=== PATIENT | male | born 1995 | race Caucasian/White ===

== ENCOUNTER 2016-07-17 20:06 | Emergency (ER) | payer SELFPAY ==
[2016-07-17 20:14] VITALS: BMI 31.6
--- NOTE | 2016-07-17 20:22 | PDOC ---
History of Present Illness <Bi Anaya - Last Filed: 07/17/16 22:42> - General History Source: Patient Exam Limitations: No Limitations <Jacey Thomas - Last Filed: 07/17/16 22:46> - General Chief Complaint: Chest Pain Stated Complaint: CHEST PAIN Time Seen by Provider: 07/17/16 20:21 - History of Present Illness Initial Comments: 07/17/16 20:43 Patient is a 20 year old male with no significant past medical history who presents to the ED with chest tightness. Patient states that he has been experiencing 4 days of intermittent sharp chest tightness, nonradiating, nonpleuritic with 5/10 in severity that has worsened today. Patient states that the chest tightness is worse at night. He reports 1 episode of vomiting today, non bloody. He denies any chest pain. Allergies: NKA (Jacey Thomas) Past History - Immunization History Immunization Up to Date: Yes - Psycho/Social/Smoking Cessation Hx Anxiety: No Suicidal Ideation: No Smoking Status: No Smoking History: Current every day smoker Number of Cigarettes Smoked Daily: 9 Information on smoking cessation initiated: Yes Hx Alcohol Use: No Drug/Substance Use Hx: No Substance Use Type: None <Bi Anaya - Last Filed: 07/17/16 22:42> <Jacey Thomas - Last Filed: 07/17/16 22:46> - Past Medical History Allergies/Adverse Reactions: Allergies Allergy/AdvReac Type Severity Reaction Status Date / Time No Known Allergies Allergy Verified 07/17/16 20:12 Home Medications: Ambulatory Orders NK [No Known Home Medication] 07/17/16 Review of Systems <Bi Anaya - Last Filed: 07/17/16 22:42> - Review of Systems Able to Perform ROS?: Yes <Jacey Thomas - Last Filed: 07/17/16 22:46> - Review of Systems Comments:: 07/17/16 20:44 CONSTITUTIONAL: No fever, no chills, no fatigue EYES: No visual changes ENT: No ear pain, no sore throat CARDIOVASCULAR: (+)chest tightness. No chest pain, no palpitations RESPIRATORY: No cough, no SOB GI: No abdominal pain, no nausea, no vomiting, no constipation, no diarrhea GENITOURINARY: No dysuria, no frequency, no hematuria MUSCULOSKELETAL: No back pain, no joint pain, no myalgias SKIN: No rash NEURO: No headache (Jacey Thomas) *Physical Exam <Bi Anaya - Last Filed: 07/17/16 22:42> <Jacey Thomas - Last Filed: 07/17/16 22:46> - Vital Signs Last Vital Signs Temp Pulse Resp BP Pulse Ox 61 21 139/75 100 07/17/16 21:31 07/17/16 21:31 07/17/16 21:31 07/17/16 21:31 - Physical Exam Comments: 07/17/16 20:44 CONSTITUTIONAL: (+)Anxious appearing, (+)Tachypneic. HEAD: Normocephalic; atraumatic EYES: PERRL; EOM intact ENMT: External appears normal; normal oropharynx NECK: Supple; non-tender; no cervical lymphadenopathy CARD: (+)Reproducible left chest wall tenderness. Normal S1, S2; no murmurs, rubs, or gallops RESP: Normal chest excursion with respiration; breath sounds clear and equal bilaterally; no wheezes, rhonchi, or rales ABD: Soft, non-distended; non-tender; no palpable organomegaly, no palpable hernias EXT: Normal ROM in all four extremities; non-tender to palpation; distal pulses intact SKIN: Warm, dry, no rash NEURO: No focal neurological deficiencies. (Jacey Thomas) Heart Score/ECG Review <Bi Anaya - Last Filed: 07/17/16 22:42> <Jacey Thomas - Last Filed: 07/17/16 22:46> #1 07/17/16 20:45 NS with sinus arrhythmia Normal ECG Vent rate 82 bpm (Jacey Thomas) ED Treatment Course - LABORATORY CBC & Chemistry Diagram: 07/17/16 20:54 07/17/16 20:54 <Bi Anaya - Last Filed: 07/17/16 22:42> - LABORATORY CBC & Chemistry Diagram: 07/17/16 20:54 07/17/16 20:54 <Jacey Thomas - Last Filed: 07/17/16 22:46> - ADDITIONAL ORDERS Additional order review: Laboratory Results 07/17/16 07/17/16 07/17/16 20:54 20:54 20:54 INR 1.12 Sodium 142 Potassium 3.6 Chloride 109 H Carbon Dioxide 24 Anion Gap 9 BUN 17 Creatinine 1.0 Creat Clearance w eGFR > 60 Random Glucose 85 Calcium 9.1 Total Bilirubin 0.6 D AST 18 D ALT 39 Alkaline Phosphatase 71 Creatine Kinase 363 H Creatine Kinase Index 0.5 CK-MB (CK-2) 1.701 CK-MB (CK-2) Rel Index Cancelled Troponin I < 0.02 Total Protein 7.1 Albumin 4.1 07/17/16 20:54 RBC 5.29 MCV 86.9 MCHC 33.9 RDW 12.9 MPV 10.8 Neutrophils % 65.7 Lymphocytes % 27.6 D Monocytes % 5.4 Eosinophils % 0.6 Basophils % 0.7 - Medications Given in the ED: ED Medications Discontinued Medications Generic Name Dose Route Start Last Admin Trade Name Freq PRN Reason Stop Dose Admin Ketorolac Tromethamine 30 mg 07/17/16 20:36 07/17/16 20:53 Toradol Injection - IVPUSH 07/17/16 20:37 30 mg ONCE ONE Administration Medical Decision Making <Bi Anaya - Last Filed: 07/17/16 22:42> <Jacey Thomas - Last Filed: 07/17/16 22:46> - Medical Decision Making 07/17/16 22:42 Patient is a 20-year-old male who presented to the ER with atraumatic reproducible left anterior chest wall pain. On initial evaluation, patient was noted to be hyperventilating, anxious appearing. Physical exam revealed reproducible left anterior chest wall tenderness to palpation. After period of reassurance, patient's vital signs normalized without intervention. Chest x-ray reveals no evidence of cardiomegaly or pneumothorax. CBC/CMP within normal limit. Cardiac enzymes reveal minimally elevated CPK but a normal troponin. I do not suspect ACS or PE at this time. Musculoskeletal chest pain is likely. Patient has received Toradol and reports significant improvement levels of his pain. Will discharge with medical follow-up as needed. (Bi Anaya) *DC/Admit/Observation/Transfer <Bi Anaya - Last Filed: 07/17/16 22:42> <Jacey Thomas - Last Filed: 07/17/16 22:46> Diagnosis at time of Disposition: Atypical chest pain - Discharge Dispostion Disposition: HOME - Referrals Referrals: [facility] [Provider Group] - Patient Instructions Printed Discharge Instructions: DI for Atypical Chest Pain - Attestations Physician Attestion: 07/17/16 22:42 The documentation was prepared by the scribe under my direct supervision. I have reviewed the documentation which correctly represents the findings, medical decision-making and critical action taken by me. (Bi Anaya)
[2016-07-17] MEDS ORDERED: KETOROLAC TROMETHAMINE 30 MG/1 ML VIAL IVPUSH ONE (20:36)
[2016-07-17] MEDS ORDERED: KETOROLAC TROMETHAMINE 30 MG/1 ML VIAL ONE (20:47)
[2016-07-17 21:03] LABS: BASOPHIL 0.7 % (0-2.0); EOSINOPHIL 0.6 % (0-4.5); MCH 29.5 pg (25.7-33.7); MCHC 33.9 g/dl (32.0-35.9); MEAN CELL VOLUME 86.9 fl (80-96); MEAN PLT VOLUME 10.8 fl (7.5-11.1); NEUTROPHILS 65.7 % (42.8-82.8); PLATELET COUNT 154 K/MM3 (134-434); RDW 12.9 % (11.9-15.9); WHITE BLOOD COUNT 8.2 K/mm3 (4.0-10.0)
[2016-07-17 21:19] LABS: INR 1.12 (0.82-1.09); PROTHROMBIN TIME (PATIENT) 12.3 SEC (9.98-11.88)
[2016-07-17 21:28] LABS: ALBUMIN 4.1 g/dl (3.4-5.0); ANION GAP 9 (8-16); BILIRUBIN,TOTAL 0.6 mg/dL (0.2-1.0); CALCIUM 9.1 mg/dL (8.5-10.1); CO2 24 mmol/L (21-32); COCKROFT - GAULT 146.93; GLUCOSE,RANDOM 85 mg/dL (74-106); SGOT/AST 18 U/L (15-37); SGPT/ALT 39 U/L (12-78); TOT PROT 7.1 g/dl (6.4-8.2)
[2016-07-17 21:30] LABS: ALK PHOS 71 U/L (45-117); TROPONIN I < 0.02 ng/ml (0.00-0.05)
[2016-07-17 23:26] VITALS: BP 154/86; PULSE 60; TEMP 98.2
--- NOTE | 2016-07-20 16:35 | EKG ---
Test Reason : Blood Pressure : / mmHG Vent. Rate : 082 BPM Atrial Rate : 082 BPM P-R Int : 120 ms QRS Dur : 088 ms QT Int : 370 ms P-R-T Axes : 060 087 014 degrees QTc Int : 432 ms NORMAL SINUS RHYTHM WITH SINUS ARRHYTHMIA NORMAL ECG NO PREVIOUS ECGS AVAILABLE Confirmed by SHANKAR HOWELL MD ([id number]) on 07/20/2016 4:35:26 PM Referred By: Confirmed By:SHANKAR HOWELL MD
== END 2016-07-17 23:27 | disposition home or self-care (01) ==
LOC: JER 20:06
PROC: 3E0333Z Introduction of Anti-inflammatory into Peripheral Vein, Percutaneous Approach (ICD-10-PCS; principal; 2016-07-17)
DX: R07.89 Other chest pain (principal); R06.4 Hyperventilation
CPT/HCPCS: 36415; 71020-TC; 80053; 82550; 82553; 84484; 85025; 85610; 93005; 93010; 99283-25

== ENCOUNTER 2017-06-08 13:38 | Emergency (ER) | payer BC ==
[2017-06-08 13:42] VITALS: BP 131/66; PULSE 88; TEMP 98.1; BMI 31.9
[2017-06-08] MEDS ORDERED: IBUPROFEN 400 MG TABLET (FP) PO ONE (13:52)
--- NOTE | 2017-06-08 14:06 | PDOC ---
History of Present Illness - General Chief Complaint: Injury Stated Complaint: SWOLLEN RT HAND Time Seen by Provider: 06/08/17 13:43 History Source: Patient - History of Present Illness Occurred: reports: yesterday, other Upper Extremity Pain Location: right: hand Past History - Past Medical History Allergies/Adverse Reactions: Allergies Allergy/AdvReac Type Severity Reaction Status Date / Time No Known Allergies Allergy Verified 06/08/17 13:39 Home Medications: Ambulatory Orders NK [No Known Home Medication] 07/17/16 COPD: No - Immunization History Immunization Up to Date: Yes - Suicide/Smoking/Psychosocial Hx Smoking Status: No Smoking History: Current every day smoker Have you smoked in the past 12 months: No Number of Cigarettes Smoked Daily: 9 Information on smoking cessation initiated: Yes Hx Alcohol Use: No Drug/Substance Use Hx: No Substance Use Type: None Review of Systems - Review of Systems Musculoskeletal: Yes: Joint Pain, Joint Swelling *Physical Exam - Vital Signs Last Vital Signs Temp Pulse Resp BP Pulse Ox 98.1 F 88 18 131/66 100 06/08/17 13:39 06/08/17 13:39 06/08/17 13:39 06/08/17 13:39 06/08/17 13:39 - Physical Exam HEENT: positive: Normal Voice Extremity: positive: Swelling (significant swelling w/ some ecchymosis to thenar eminnence of R hand, FROMi to R thumb, no snuffbox ttp) ED Treatment Course - RADIOLOGY Radiology Studies Ordered: Category Date Time Status FINGER(S) RIGHT [RAD] Stat Radiology 06/08/17 13:51 Ordered HAND- RIGHT [RAD] Stat Radiology 06/08/17 13:51 Ordered - Medications Given in the ED: ED Medications Discontinued Medications Generic Name Dose Route Start Last Admin Trade Name Freq PRN Reason Stop Dose Admin Ibuprofen 800 mg 06/08/17 13:52 06/08/17 13:57 Motrin - PO 06/08/17 13:53 800 mg ONCE ONE Administration Medical Decision Making - Medical Decision Making 06/08/17 14:05 21-year-old male, no significant history here with right hand pain, swelling. Patient states during a game of baseball yesterday he felt immediate pain and noticed swelling right after swinging the bat. States symptoms worsened this a.m. Denies any fall See exam Possible R hand sprain, r/o fx -xr -pain meds 06/08/17 14:53 Xray neg for fracture. JOSAFAT placed to R hand. To take motrin prn pain. Hand f/u as needed in 2 weeks *DC/Admit/Observation/Transfer Diagnosis at time of Disposition: Hand sprain Qualifiers: Encounter type: initial encounter Laterality: right Qualified Code(s): S63.91XA - Sprain of unspecified part of right wrist and hand, initial encounter - Discharge Dispostion Disposition: HOME Condition at time of disposition: Improved - Referrals Referrals: Jarrod Womack MD [Staff Physician] - - Patient Instructions Additional Instructions: Your xray was negative for any fracture. You most likely sustain a hand sprain which can take 1-2 weeks to heal. Keep Josafat bandage in place for swelling. You can also ice area and elevate at home to reduce swelling. Take 800 of Motrin every 6 hour period. If symptoms persist after 2 weeks. Follow-up with Dr. Womack of orthopedics - Post Discharge Activity Forms/Work/School Notes: Back to School
== END 2017-06-08 15:38 | disposition home or self-care (01) ==
LOC: JERFT 13:38
DX: S63.8X1A Sprain of other part of right wrist and hand, initial encounter (principal); X50.9XXA Other and unspecified overexertion or strenuous movements or postures, initial encounter; Y93.64 Activity, baseball; Y92.320 Baseball field as the place of occurrence of the external cause; Y99.8 Other external cause status
CPT/HCPCS: 73130-TC-RT-FY; 73140-TC-RT-FY; 99281-25

== ENCOUNTER 2018-01-12 20:38 | Emergency (ER) | payer BC ==
[2018-01-12 20:54] VITALS: TEMP 98.3; BMI 34.9
--- NOTE | 2018-01-12 21:03 | PDOC ---
Rapid Medical Evaluation Chief Complaint: Chest Pain Time Seen by Provider: 01/12/18 21:00 Medical Evaluation: Allergies Allergy/AdvReac Type Severity Reaction Status Date / Time No Known Allergies Allergy Verified 01/12/18 20:54 Vital Signs Temp Pulse Resp BP Pulse Ox 98.3 F 75 16 137/65 100 01/12/18 20:53 01/12/18 20:53 01/12/18 20:53 01/12/18 20:53 01/12/18 20:53 01/12/18 21:01 Patient c/o: went to urgent care for chest abd pain, had normal labs , ekg with lateral st elevation, smokes marijuana Patient on brief exam: no reproducible chest pain, ekg no st elevation in lat leads rate 76 Patient ordered for: ekg The patient will proceed to the ED Discharge Disposition - Diagnosis Chest pain - Referrals - Patient Instructions - Post Discharge Activity
--- NOTE | 2018-01-12 22:19 | PDOC ---
History of Present Illness - General Chief Complaint: Chest Pain Stated Complaint: ABNORMAL EKG Time Seen by Provider: 01/12/18 21:00 History Source: Patient - History of Present Illness Initial Comments: 01/12/18 23:19 22 year old male with epigastric pain raditing up to right chest pain for the last 6 days. reports that yesterday he was woken up out of sleep with chest pain. reports that pain is sometimes burning in nature. patient was sent here by [facility] for evaluation of chest pain. patient reports that chest pain is worse with deep breath. denies NVD, fever/ chills, urinary symptoms or flank pain. Past History - Past Medical History Allergies/Adverse Reactions: Allergies Allergy/AdvReac Type Severity Reaction Status Date / Time No Known Allergies Allergy Verified 01/12/18 20:54 Home Medications: Ambulatory Orders Famotidine [Pepcid -] 20 mg PO BID #14 tablet 01/13/18 COPD: No - Immunization History Immunization Up to Date: Yes - Suicide/Smoking/Psychosocial Hx Smoking Status: No Smoking History: Never smoked Have you smoked in the past 12 months: No Number of Cigarettes Smoked Daily: 9 Information on smoking cessation initiated: No Hx Alcohol Use: No Drug/Substance Use Hx: No Substance Use Type: None *Physical Exam - Vital Signs Last Vital Signs Temp Pulse Resp BP Pulse Ox 98.3 F 75 16 137/65 100 01/12/18 20:53 01/12/18 20:53 01/12/18 20:53 01/12/18 20:53 01/12/18 20:53 - Physical Exam General Appearance: Yes: Appropriately Dressed Respiratory/Chest: positive: Lungs Clear, Normal Breath Sounds. negative: Chest Tender Cardiovascular: positive: Regular Rhythm, Regular Rate Gastrointestinal/Abdominal: positive: Normal Bowel Sounds, Soft. negative: Tender (no epigastric RUQ tenderness) Musculoskeletal: positive: Normal Inspection Extremity: positive: Normal Capillary Refill, Normal Inspection, Normal Range of Motion Integumentary: positive: Normal Color, Dry, Warm Neurologic: positive: Fully Oriented, Alert Moderate Sedation - Procedure Monitoring Vital Signs: Procedure Monitoring Vital Signs Temperature 98.3 F 01/12/18 20:53 Pulse Rate 75 01/12/18 20:53 Respiratory Rate 16 01/12/18 20:53 Blood Pressure 137/65 01/12/18 20:53 O2 Sat by Pulse Oximetry (%) 100 01/12/18 20:53 ED Treatment Course - LABORATORY CBC & Chemistry Diagram: 01/12/18 22:41 01/12/18 22:41 - ADDITIONAL ORDERS Additional order review: Laboratory Results 01/12/18 01/12/18 01/12/18 22:41 22:41 22:41 PT with INR 11.80 INR 1.00 D-Dimer < 215 Sodium 136 Potassium 4.6 Chloride 103 Carbon Dioxide 25 Anion Gap 7 L BUN 20 H Creatinine 1.1 Creat Clearance w eGFR > 60 Random Glucose 99 Calcium 8.8 Magnesium 2.0 Total Bilirubin 0.6 AST 22 ALT 41 Alkaline Phosphatase 73 Creatine Kinase 149 Troponin I < 0.02 Total Protein 7.6 Albumin 4.1 01/12/18 22:41 RBC 5.15 MCV 85.1 MCHC 35.8 RDW 12.6 MPV 10.4 Neutrophils % 83.7 H D Lymphocytes % 12.7 D Monocytes % 2.8 L Eosinophils % 0.5 Basophils % 0.3 - RADIOLOGY Radiology Studies Ordered: Category Date Time Status CHEST PA & LAT [RAD] Stat Radiology 01/12/18 22:19 Taken - Medications Given in the ED: ED Medications Discontinued Medications Generic Name Dose Route Start Last Admin Trade Name Freq PRN Reason Stop Dose Admin Al Hydroxide/Mg Hydroxide 30 ml 01/12/18 22:36 01/12/18 22:52 Mylanta Oral Suspension - PO 01/12/18 22:37 30 ml ONCE ONE Administration Famotidine/Sodium Chloride 20 mg in 50 mls @ 100 mls/hr 01/12/18 22:36 22:52 Pepcid 20 Mg Premixed Ivpb - IVPB 01/12/18 23:05 100 mls/hr ONCE ONE Administration Medical Decision Making - Medical Decision Making 01/12/18 23:23 A: chest pain/ gastritis *DC/Admit/Observation/Transfer Diagnosis at time of Disposition: Chest pain Qualifiers: Chest pain type: unspecified Qualified Code(s): R07.9 - Chest pain, unspecified Gastritis Qualifiers: Gastritis type: unspecified gastritis Chronicity: unspecified Gastritis bleeding: without bleeding Qualified Code(s): K29.70 - Gastritis, unspecified, without bleeding - Discharge Dispostion Disposition: HOME - Prescriptions Prescriptions: Famotidine [Pepcid -] 20 mg PO BID #14 tablet - Referrals - Patient Instructions Printed Discharge Instructions: DI for Chest Pain, [place] Diet Additional Instructions: start a bland diet. take pepcid as prescribed follow up with your doctor as soon as possible. return to the ER if symptoms worsen. - Post Discharge Activity
[2018-01-12] MEDS ORDERED: FAMOTIDINE 20 MG/50 ML IVPB 20 MG/50 ML MG IVPB ONE ×2 (22:36→22:47)
[2018-01-12] MEDS ORDERED: MAG HYDROX/AL HYDROX/SIMETH 30 ML UNIT-DOSE CUP PO ONE (22:36)
[2018-01-12] MEDS ORDERED: MAG HYDROX/AL HYDROX/SIMETH 30 ML UNIT-DOSE CUP ONE (22:47)
[2018-01-12 22:50] LABS: BASO % 0.3 % (0-2.0); EOS % 0.5 % (0-4.5); HEMATOCRIT 43.8 % (35.4-49); HEMOGLOBIN 15.7 GM/dL (11.7-16.9); LYMPH % 12.7 % (8-40); MCH 30.5 pg (25.7-33.7); MCHC 35.8 g/dl (32.0-35.9); MEAN CELL VOLUME 85.1 fl (80-96); MEAN PLT VOLUME 10.4 fl (7.5-11.1); MONO % 2.8 % (3.8-10.2); NEUT % 83.7 % (42.8-82.8); PLATELET COUNT 186 K/MM3 (134-434); RBC 5.15 M/mm3 (4.00-5.60); RDW 12.6 % (11.9-15.9); WHITE BLOOD COUNT 11.9 K/mm3 (4.0-10.0)
[2018-01-12 23:19] LABS: ALBUMIN 4.1 g/dl (3.4-5.0); ALK PHOS 73 U/L (45-117); BILIRUBIN,TOTAL 0.6 mg/dL (0.2-1); BLOOD UREA NITROGEN 20 mg/dL (7-18); CALCIUM 8.8 mg/dL (8.5-10.1); CHLORIDE 103 mmol/L (98-107); CO2 25 mmol/L (21-32); CREATININE 1.1 mg/dL (0.55-1.3); GLUCOSE,RANDOM 99 mg/dL (74-106); SGPT/ALT 41 U/L (13-61); SODIUM 136 mmol/L (136-145); TOT PROT 7.6 g/dl (6.4-8.2)
[2018-01-12 23:20] LABS: ANION GAP 7 MMOL/L (8-16); POTASSIUM 4.6 mmol/L (3.5-5.1); SGOT/AST 22 U/L (15-37)
[2018-01-12 23:22] LABS: PROTHROMBIN TIME (PATIENT) 11.8 SEC (9.7-13.0)
[2018-01-13 01:03] VITALS: BP 124/74; PULSE 74
--- NOTE | 2018-01-13 11:45 | EKG ---
Test Reason : Blood Pressure : / mmHG Vent. Rate : 076 BPM Atrial Rate : 076 BPM P-R Int : 132 ms QRS Dur : 094 ms QT Int : 366 ms P-R-T Axes : 067 085 028 degrees QTc Int : 411 ms NORMAL SINUS RHYTHM WITH SINUS ARRHYTHMIA NORMAL ECG WHEN COMPARED WITH ECG OF 17-JUL-2016 20:19, NO SIGNIFICANT CHANGE WAS FOUND Confirmed by ANOOP MATTSON, KIA ([id number]) on 01/13/2018 11:45:32 AM Referred By: KIRSTY Confirmed By:KIA DAVALOS MD
== END 2018-01-13 00:53 | disposition home or self-care (01) ==
LOC: JER 20:38
PROC: 3E033GC Introduction of Other Therapeutic Substance into Peripheral Vein, Percutaneous Approach (ICD-10-PCS; principal; 2018-01-12)
DX: K29.70 Gastritis, unspecified, without bleeding (principal)
CPT/HCPCS: 36415; 71046-TC-FY; 80053; 82550; 83735; 84484; 85025; 85379; 85610; 93005; 93010; 99283-25

== ENCOUNTER 2018-01-13 18:54 | Emergency (ER) | payer BC ==
[2018-01-13 19:08] VITALS: BP 180/93; PULSE 88; TEMP 98.6; BMI 34.2
--- NOTE | 2018-01-13 19:08 | PDOC ---
Rapid Medical Evaluation Time Seen by Provider: 01/13/18 19:05 Medical Evaluation: Allergies Allergy/AdvReac Type Severity Reaction Status Date / Time No Known Allergies Allergy Verified 01/12/18 20:54 01/13/18 19:06 I have performed a brief in-person evaluation of this patient. The patient presents with a chief complaint of: chest pressure s/p percocet detox x3 days Pertinent physical exam findings: Lungs CTAB. RRR. S1s2. No m/r/g. I have ordered the following: EKG, labs The patient will proceed to the ED for further evaluation. Discharge Disposition - Diagnosis Atypical chest pain - Referrals - Patient Instructions - Post Discharge Activity
[2018-01-13 20:35] LABS: BASO % 0.4 % (0-2.0); EOS % 0.2 % (0-4.5); HEMATOCRIT 46.7 % (35.4-49); HEMOGLOBIN 16.7 GM/dL (11.7-16.9); MCH 30.5 pg (25.7-33.7); MCHC 35.8 g/dl (32.0-35.9); MEAN CELL VOLUME 85.1 fl (80-96); MEAN PLT VOLUME 10.1 fl (7.5-11.1); MONO % 4.5 % (3.8-10.2); NEUT % 77.9 % (42.8-82.8); PLATELET COUNT 182 K/MM3 (134-434); RBC 5.48 M/mm3 (4.00-5.60); RDW 12.5 % (11.9-15.9); WHITE BLOOD COUNT 8.9 K/mm3 (4.0-10.0)
--- NOTE | 2018-01-13 20:35 | PDOC ---
History of Present Illness - General Chief Complaint: Palpitations Stated Complaint: CHEST PAIN Time Seen by Provider: 01/13/18 19:05 - History of Present Illness Initial Comments: 01/13/18 20:32 22 yo M with no significant pmh who p/w epigastirc pain. Patient reports onset of stable, pressure-type, epigastria and right sided chest pain beginning , with no identifiable triggers. Pain unremitting, and worse with supine position. Denies food triggers. Pain slightly improved with Ranitidine PO. Normal bowel habits. No change in appetite. Patient also with diaphoresis, and nervousness, which he attributes to Perocet cessation x 1 week. Patient with chronic opioid dependence. Percocet x 5+ years for dental carry related pain. Patient to be seen by sponsor next week. Patient denies N/V, PND, palpitations, F,C, CP, SOB, urinary complaints, BPR, hematuria, diarrhea, constipation, lightheadedness, weakness, sensory changes. PMHx: as noted above. Denies h/o ACS/ND, endoscopy, or GI f/u. Denies h/o abdominal surgery. ROS: as noted SHx: tobacco use 1/ ppd x 5 years. Social Etoh. Denies IVDA. Allergies:NKDA Past History - Past Medical History Allergies/Adverse Reactions: Allergies Allergy/AdvReac Type Severity Reaction Status Date / Time No Known Allergies Allergy Verified 01/13/18 19:08 Home Medications: Ambulatory Orders Famotidine [Pepcid -] 20 mg PO BID #14 tablet 01/13/18 Pantoprazole Sodium [Protonix -] 40 mg PO DAILY #30 tablet.ec 01/13/18 COPD: No - Immunization History Immunization Up to Date: Yes - Suicide/Smoking/Psychosocial Hx Smoking Status: No Smoking History: Never smoked Have you smoked in the past 12 months: No Number of Cigarettes Smoked Daily: 9 Hx Alcohol Use: No Drug/Substance Use Hx: No Substance Use Type: None Review of Systems - Review of Systems Comments:: 01/13/18 20:33 GENERAL/CONSTITUTIONAL: No fever or chills. No weakness. HEAD, EYES, EARS, NOSE AND THROAT: No change in vision. No ear pain or discharge. No sore throat. CARDIOVASCULAR: No chest pain or shortness of breath RESPIRATORY: No cough, wheezing, or hemoptysis. GASTROINTESTINAL: + Epigastric abdominal pain. No nausea, vomiting, diarrhea or constipation. GENITOURINARY: No dysuria, frequency, or change in urination. MUSCULOSKELETAL: No joint or muscle swelling or pain. No neck or back pain. SKIN: No rash NEUROLOGIC: No headache, vertigo, loss of consciousness, or change in strength/ sensation. ENDOCRINE: No increased thirst. No abnormal weight change HEMATOLOGIC/LYMPHATIC: No anemia, easy bleeding, or history of blood clots. ALLERGIC/IMMUNOLOGIC: No hives or skin allergy. *Physical Exam - Vital Signs Last Vital Signs Temp Pulse Resp BP Pulse Ox 98.6 F 88 18 180/93 H 99 01/13/18 19:06 01/13/18 19:06 01/13/18 19:06 01/13/18 19:06 01/13/18 19:06 - Physical Exam Comments: 01/13/18 20:33 GENERAL: Awake, alert, and fully oriented, in no acute distress HEAD: No signs of trauma, normocephalic, atraumatic EYES: PERRLA, EOMI, sclera anicteric, conjunctiva clear ENT: Hearing grossly normal, nares patent, oropharynx clear without exudates. Moist mucosa NECK: Normal ROM, supple, no lymphadenopathy, JVD, or masses LUNGS: No distress, speaks full sentences, clear to auscultation bilaterally HEART: Regular rate and rhythm, normal S1 and S2, no murmurs, rubs or gallops, peripheral pulses normal and equal bilaterally. ABDOMEN: Soft, nontender, normoactive bowel sounds. No guarding, no rebound. No masses. Neg CVA ttp. EXTREMITIES : Normal inspection, Normal range of motion, no edema. No clubbing or cyanosis. SKIN: Warm, Dry, normal turgor, no rashes or lesions noted Moderate Sedation - Procedure Monitoring Vital Signs: Procedure Monitoring Vital Signs Temperature 98.6 F 01/13/18 19:06 Pulse Rate 88 01/13/18 19:06 Respiratory Rate 18 01/13/18 19:06 Blood Pressure 180/93 H 01/13/18 19:06 O2 Sat by Pulse Oximetry (%) 99 01/13/18 19:06 ED Treatment Course - LABORATORY CBC & Chemistry Diagram: 01/13/18 20:13 01/13/18 20:13 - ADDITIONAL ORDERS Additional order review: Laboratory Results 01/13/18 01/13/18 21:42 20:13 Sodium 137 Potassium 4.1 Chloride 102 Carbon Dioxide 23 Anion Gap 12 BUN 14 Creatinine 1.0 Creat Clearance w eGFR > 60 Random Glucose 81 Calcium 9.5 Magnesium 2.2 Total Bilirubin 1.0 AST 18 ALT 42 Alkaline Phosphatase 76 Creatine Kinase 151 Creatine Kinase Index 1.1 CK-MB (CK-2) 1.7 Troponin I < 0.02 Total Protein 8.2 Albumin 4.7 Urine Color Dkyellow Urine Appearance Slcloudy Urine pH 5.0 Ur Specific [place] 1.017 Urine Protein 2+ H Urine Glucose (UA) 1+ H Urine Ketones Negative Urine Blood Negative Urine Nitrite Negative Urine Bilirubin Negative Urine Urobilinogen Negative Ur Leukocyte Esterase Negative Urine WBC (Auto) 120 Urine RBC (Auto) 110 Urine Mucus Rare 01/13/18 20:13 RBC 5.48 MCV 85.1 MCHC 35.8 RDW 12.5 MPV 10.1 Neutrophils % 77.9 Lymphocytes % 17.0 D Monocytes % 4.5 Eosinophils % 0.2 Basophils % 0.4 - Medications Given in the ED: ED Medications Discontinued Medications Generic Name Dose Route Start Last Admin Trade Name Freq PRN Reason Stop Dose Admin Al Hydroxide/Mg Hydroxide 30 ml 01/13/18 20:56 01/13/18 21:20 Mylanta Oral Suspension - PO 01/13/18 20:57 30 ml ONCE ONE Administration Famotidine/Sodium Chloride 20 mg in 50 mls @ 100 mls/hr 01/13/18 20:56 21:10 Pepcid 20 Mg Premixed Ivpb - IVPB 01/13/18 21:25 100 mls/hr ONCE ONE Administration Sucralfate 1 gm 01/13/18 20:56 01/13/18 21:30 Carafate - PO 01/13/18 20:57 1 gm ONCE ONE Administration Medical Decision Making - Medical Decision Making 01/13/18 21:01 22 yo M with no significant pmh who p/w epigastirc pain. BP 180/93, vitals otherwise wnl, AF, physical exam unremarkable. ACS/ND r/o. Patient with dyspepsia like symptoms. Likely esophagitis vs. gastritis. Will consider biliary disease, gastroenteritis, anixety related disorder. Low suspicion AAA, ao dissection, ACS, colitis, appendicitis. Pain control and reassess. Ed Course: RME labs CBC,CMP, Cardiac Pr. Maloox, Carafate, Famotidine 01/13/18 22:15 UA: 120 WBC, 110 RBC, 2 + Protein 01/13/18 22:16 CBC, CMP, trop: Unremarkable Patient denies urinary complaints. EKG: NSR with absent ANDREAS, STD. Normal axis and interval duration symptoms controlled Patient stable for d/c with return precautions. Advised to f/u with GI and neprhology. *DC/Admit/Observation/Transfer Diagnosis at time of Disposition: Atypical chest pain - Discharge Dispostion Disposition: HOME Condition at time of disposition: Stable Decision to Admit order: No - Prescriptions Prescriptions: Pantoprazole Sodium [Protonix -] 40 mg PO DAILY #30 tablet.ec - Referrals Referrals: Roni Roth MD [Staff Physician] - Larry Martinez MD [Staff Physician] - - Patient Instructions Printed Discharge Instructions: DI for Epigastric Pain Additional Instructions: Please return to the emergency department with any new or worsening symptoms or concerns. Please follow up with your primary care physician within 72 hours. Please follow up with nephrology within 72 hours for protein in urine, and WBC 110, RBC 120. Follow up with Gastroenterology within one week. - Post Discharge Activity - Attestations Physician Attestion: 01/13/18 20:34
[2018-01-13 20:47] LABS: ALBUMIN 4.7 g/dl (3.4-5.0); ALK PHOS 76 U/L (45-117); ANION GAP 12 MMOL/L (8-16); BLOOD UREA NITROGEN 14 mg/dL (7-18); CALCIUM 9.5 mg/dL (8.5-10.1); CHLORIDE 102 mmol/L (98-107); CO2 23 mmol/L (21-32); GLUCOSE,RANDOM 81 mg/dL (74-106); MAGNESIUM 2.2 mg/dL (1.8-2.4); POTASSIUM 4.1 mmol/L (3.5-5.1); SGOT/AST 18 U/L (15-37); SGPT/ALT 42 U/L (13-61); SODIUM 137 mmol/L (136-145); TOT PROT 8.2 g/dl (6.4-8.2)
[2018-01-13] MEDS ORDERED: FAMOTIDINE 20 MG/50 ML IVPB 20 MG/50 ML MG IVPB ONE ×2 (20:56→21:36)
[2018-01-13] MEDS ORDERED: MAG HYDROX/AL HYDROX/SIMETH 30 ML UNIT-DOSE CUP PO ONE (20:56)
[2018-01-13] MEDS ORDERED: SUCRALFATE 1 GM TABLET (FP) PO ONE (20:56)
[2018-01-13] MEDS ORDERED: MAG HYDROX/AL HYDROX/SIMETH 30 ML UNIT-DOSE CUP ONE (21:36)
[2018-01-13] MEDS ORDERED: SUCRALFATE 1 GM TABLET (FP) ONE (21:36)
--- NOTE | 2018-01-13 21:57 | PDOC ---
Attending Attestation - HPI HPI: 01/13/18 22:29 Patient is a 22 year old male with a significant past medical history of Opioid dependence who presents to the ED with complaints of epigastric abdominal pain that began x1 week ago. Patient reports experiencing chronic epigastric abdominal pain that is a pressured pain that has begun to radiate to his right chest. He reports going to urgent care yesterday afternoon as well as the ED for the same symptoms. Patient reports coming into the ED for further evaluation after experiencing intermittent episodes of diaphoresis that began to worry him. Denies chest pain, Sob. Denies nausea, vomiting. Denies fevers, chills. Denies contact with sick individuals, out of state travelling.. Denies dysuria, hematuria. Denies diarrhea, constipation. Denies trauma to affected area. Denies any other symptoms. Allergies: None Social history: No smoking. No alcohol. Percocet use. Surgical history: None PMD: None <Augusto Cantu - Last Filed: 01/13/18 22:29> - Resident Resident Name: Moise Catalan - ED Attending Attestation I have performed the following: I have examined & evaluated the patient, The case was reviewed & discussed with the resident, I agree w/resident's findings & plan, Exceptions are as noted - Physicial Exam PE: 01/14/18 03:40 agree with exam as documented by resident - Medical Decision Making 01/14/18 03:40 atypical chest pain, consider gastritis analgesia re-eval symptoms improved with meds UA with sterile pyuria, proteinuria, asymptomatic f/u with nephrology <Gume Aponte - Last Filed: 01/14/18 03:42>
[2018-01-13 22:05] LABS: URINE APPEARANCE SLCLOUDY; URINE BILIRUBIN NEGATIVE (<2.0 mg/dL); URINE COLOR DKYELLOW; URINE GLUCOSE (UA) 1+ (NEGATIVE); URINE KETONE NEGATIVE (NEGATIVE); URINE LEUK ESTERASE NEGATIVE (NEGATIVE); URINE NITRITE NEGATIVE (NEGATIVE); URINE PROTEIN 2+ (NEGATIVE); URINE UROBILINOGEN NEGATIVE mg/dL (0.2-1.0)
[2018-01-13 22:07] LABS: URINE MUCUS RARE
--- NOTE | 2018-01-14 11:58 | EKG ---
Test Reason : Blood Pressure : / mmHG Vent. Rate : 071 BPM Atrial Rate : 071 BPM P-R Int : 132 ms QRS Dur : 092 ms QT Int : 382 ms P-R-T Axes : 063 080 028 degrees QTc Int : 415 ms NORMAL SINUS RHYTHM WITH SINUS ARRHYTHMIA NORMAL ECG WHEN COMPARED WITH ECG OF 12-JAN-2018 20:59, NO SIGNIFICANT CHANGE WAS FOUND Confirmed by SRIDHAR HO MD ([id number]) on 01/14/2018 11:58:10 AM Referred By: Confirmed By:SRIDHAR HO MD
== END 2018-01-14 00:30 | disposition home or self-care (01) ==
LOC: JER 18:54
DX: R07.9 Chest pain, unspecified (principal)
CPT/HCPCS: 36415; 71046-TC-FY; 80053; 81003; 81015; 82550; 82553; 83735; 84484; 85025; 93005; 93010; 99284-25

== ENCOUNTER 2018-01-15 12:02 | Emergency (ER) | payer BC ==
[2018-01-15 12:13] VITALS: BMI 33.2
--- NOTE | 2018-01-15 12:30 | PDOC ---
History of Present Illness - History of Present Illness Initial Comments: 22 year old male with PMH of percocet abuse presenting with right sided chest tightness that acutely worsened today. States that he has been a little anxious and has had a poor appetite over the past few days while detoxing form the percocets and going through subsequent withdrawal symptoms. A few hours prior he was feeling quite anxious and agitated then noticed a suffer onset right sided , non-radiating,, non-pleuritic chest tightness. He has never had this issue before. He is severely anxious about this pain being something serious. He denies history of HTN, diabetes, but does have a father who had an IA in his mid 50s but the patient admits that he was heavy drinker and smoker. Patient would like to be reassured that he does not have any serious cardiac or other pathology right now. 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) Substance Use Type: None <Hugh Washington - Last Filed: 01/15/18 14:05> <Pati Amato - Last Filed: 01/15/18 14:16> - Past Medical History Allergies/Adverse Reactions: Allergies Allergy/AdvReac Type Severity Reaction Status Date / Time No Known Allergies Allergy Verified 01/13/18 19:08 Home Medications: Ambulatory Orders Famotidine [Pepcid -] 20 mg PO BID #14 tablet 01/13/18 Pantoprazole Sodium [Protonix -] 40 mg PO DAILY #30 tablet.ec 01/13/18 cloNIDine HCL [Catapres -] 0.1 mg PO TID PRN #9 tablet 01/15/18 Review of Systems - Review of Systems Constitutional: No: Chills, Diaphoresis, Fever HEENTM: No: Eye Pain, Blurred Vision, Tearing Respiratory: No: Cough, Orthopnea, Shortness of Breath Cardiac (ROS): No: Chest Pain, Edema ABD/GI: No: Diarrhea, Nausea, Poor Appetite : No: Burning, Dysuria, Discharge Musculoskeletal: No: Back Pain, Joint Pain Integumentary: No: Erythema, Flushing, Lesions, Lumps Neurological: No: Headache, Numbness, Paresthesia Psychiatric: Yes: Anxiety, Other (substance abuse) Endocrine: No: Flushing, Intolerance to Cold Hematologic/Lymphatic: No: Anemia, Blood Clots, Easy Bleeding <Hugh Washington - Last Filed: 01/15/18 14:05> *Physical Exam - Vital Signs Last Vital Signs Temp Pulse Resp BP Pulse Ox 98.4 F 117 H 18 115/89 100 01/15/18 12:08 01/15/18 12:08 01/15/18 12:08 01/15/18 12:08 01/15/18 12:08 - Physical Exam General Appearance: Yes: Nourished, Appropriately Dressed, Apparent Distress, Mild Distress (appears anxious) HEENT: positive: EOMI, JOHN, Normal ENT Inspection, Normal Voice Neck: positive: Trachea midline, Normal Thyroid, Supple. negative: Tender, Rigid Respiratory/Chest: positive: Lungs Clear, Normal Breath Sounds. negative: Chest Tender, Respiratory Distress, Accessory Muscle Use Cardiovascular: positive: Regular Rhythm, Tachycardia. negative: Regular Rate Gastrointestinal/Abdominal: positive: Normal Bowel Sounds, Flat, Soft. negative : Tender Lymphatic: negative: Adenopathy, Tenderness Musculoskeletal: positive: Normal Inspection. negative: Decreased Range of Motion Extremity: positive: Normal Capillary Refill, Normal Inspection, Normal Range of Motion. negative: Tender Integumentary: positive: Normal Color, Dry, Warm Neurologic: positive: Fully Oriented, Alert, Normal Mood/Affect, Normal Response , Motor Strength 5/5 <Hugh Washington - Last Filed: 01/15/18 14:05> - Vital Signs Last Vital Signs Temp Pulse Resp BP Pulse Ox 98.6 F 86 16 134/97 97 01/15/18 14:07 01/15/18 14:07 01/15/18 14:07 01/15/18 14:07 01/15/18 14:07 <Pati Amato - Last Filed: 01/15/18 14:16> Moderate Sedation - Procedure Monitoring Vital Signs: Procedure Monitoring Vital Signs Temperature 98.4 F 01/15/18 12:08 Pulse Rate 117 H 01/15/18 12:08 Respiratory Rate 18 01/15/18 12:08 Blood Pressure 115/89 01/15/18 12:08 O2 Sat by Pulse Oximetry (%) 100 01/15/18 12:08 <Hugh Washington - Last Filed: 01/15/18 14:05> - Procedure Monitoring Vital Signs: Procedure Monitoring Vital Signs Temperature 98.6 F 01/15/18 14:07 Pulse Rate 86 01/15/18 14:07 Respiratory Rate 16 01/15/18 14:07 Blood Pressure 134/97 01/15/18 14:07 O2 Sat by Pulse Oximetry (%) 97 01/15/18 14:07 <Pati Amato - Last Filed: 01/15/18 14:16> Medical Decision Making - Medical Decision Making 22 year old male without previous medical history currently detoxing from percocets preenting with right sided chest pain. He has been here two times in the past three days for the same issues with EKG, troponins, and CXR negative x 2. EKG here rate 90, MD interval 124, QRS 90, QTc 408, normal axis, with minor repolarization abnormalities in V2- V4 but unchanged from both EKGs on 01/13-. Patient will be DC'd with clonidine 0.1 TID PRN for three days to help with anxiety and withdrawal symptoms. 01/15/18 14:06 <Hugh Washington - Last Filed: 01/15/18 14:05> *DC/Admit/Observation/Transfer - Discharge Dispostion Decision to Admit order: No <Hugh Washington - Last Filed: 01/15/18 14:05> - Discharge Dispostion Decision to Admit order: No <Pati Amato - Last Filed: 01/15/18 14:16> Diagnosis at time of Disposition: Opioid withdrawal Chest pain Qualifiers: Chest pain type: unspecified Qualified Code(s): R07.9 - Chest pain, unspecified - Discharge Dispostion Disposition: HOME - Prescriptions Prescriptions: cloNIDine HCL [Catapres -] 0.1 mg PO TID PRN #9 tablet PRN Reason: Anxiety - Referrals Referrals: [facility] [place] [facility] [place] [Provider Group] [facility] [Provider Group] - Patient Instructions Printed Discharge Instructions: DI for Opioid Addiction Additional Instructions: Please use the clonidine for your withdrawal symptoms if needed over the next three days. Do not use more than three in any day and only take 1 pill at a time. Please return to our ED if you have any new or worsening symptoms. If you want any help with detoxification, please call the detox physicians on the sheet if you need assistance.
[2018-01-15 14:08] VITALS: BP 134/97; PULSE 86; TEMP 98.6
--- NOTE | 2018-01-15 14:16 | PDOC ---
Attending Attestation - Resident Resident Name: FelixLidianormarick - ED Attending Attestation I have performed the following: I have examined & evaluated the patient, The case was reviewed & discussed with the resident, I agree w/resident's findings & plan - [facility] HPI: 01/15/18 14:12 Mr. Storm Pichardo is a 22 year old male with no significant past medical history presents to the emergency department with right sided chest tightness. no radiation of pain, nonexertional. a/w anxiety and palpitations today, after he took a smoke and occ uses marijuana. Denies taking any meds to alleviate the pain. Per prior charts, the patient has a chronic hx of Percocet x5 years for dental pain. has been off percocet x 4-5 days, feeling w/d sx. The patient was seen at the ED on 01/13/2018 for epigastric and R. sided chest pain, with neg trops and CXR. The patient had unremarkable trop, and discharged home earlier this week. The patient was prescribed Protonix. also awaiting oral abx for his dental pain. Allergies: NKA PCP: None reported - Physicial Exam PE: 01/15/18 14:13 NAD, well appearing, PERRL, EOMI, MMM, nl conjunctiva, anicteric; neck supple. lungs clear, RRR, abdomen soft nontender. HARTMAN x4, no focal neuro deficits. No peripheral edema. normal color for ethnicity, WWP. - Medical Decision Making 01/15/18 14:13 See HPI for details Vital signs reviewed, +initial tachy, but anxious Prior notes reviewed, including admissions, discharges and consultations. laboratory results and imaging reviewed, previously with neg trops, normal CXR and unchanged EKG EKG normal sinus rhythm, no interval abnormalities, narrow QRS, ST and T wave segments and morphology normal. Nonspecific T wave abnormalities nonischemic. ED course: no acute events, sx resolved and well appearing. VS improved, no longer tachy. likely opioid w/d sx, doubt emergent pathology. trial clonidine TID PRN for opioid w/d symptoms and craving, offered detox information. Dispo: I discussed the physical exam findings, ancillary test results and final diagnoses with the patient. I answered all of the patient's questions. The patient was satisfied with the care received and felt comfortable with the discharge plan and treatment plan. The patient will return to the Emergency Department with any new, persistent or worsening symptoms. 01/15/18 14:17 Heart Score/ECG Review - ECG Impressions Normal ECG: Yes Comment:: 01/15/18 14:15 EKG normal sinus rhythm, no interval abnormalities, narrow QRS, ST and T wave segments and morphology normal. Nonspecific T wave abnormalities nonischemic.
--- NOTE | 2018-01-16 17:22 | EKG ---
Test Reason : Blood Pressure : / mmHG Vent. Rate : 090 BPM Atrial Rate : 090 BPM P-R Int : 124 ms QRS Dur : 090 ms QT Int : 334 ms P-R-T Axes : 069 082 039 degrees QTc Int : 408 ms NORMAL SINUS RHYTHM WITH SINUS ARRHYTHMIA NORMAL ECG WHEN COMPARED WITH ECG OF 13-JAN-2018 20:16, NO SIGNIFICANT CHANGE WAS FOUND Confirmed by MD ALICIA, DENTON ([id number]) on 01/16/2018 5:21:47 PM Referred By: Confirmed By:DENTON VARGAS MD
== END 2018-01-15 14:19 | disposition home or self-care (01) ==
LOC: JER 12:02
DX: R07.9 Chest pain, unspecified (principal); F11.23 Opioid dependence with withdrawal; F17.210 Nicotine dependence, cigarettes, uncomplicated
CPT/HCPCS: 93005; 93010; 99282-25

== ENCOUNTER 2018-01-18 12:04 | Emergency (ER) | payer BC ==
[2018-01-18 12:14] VITALS: BP 140/95; PULSE 82; TEMP 98.3; BMI 33.2
--- NOTE | 2018-01-18 12:40 | PDOC ---
History of Present Illness - General Chief Complaint: Pain Stated Complaint: FOLLOW UP Time Seen by Provider: 01/18/18 12:31 - History of Present Illness Initial Comments: 01/18/18 12:38 22-year-old male with a past medical history for GERD and anxiety recently off of opioids for the last 5 years presents for evaluation of atraumatic onset of left arm pain. His left arm pain has been present for the last day he wanted to make sure he was not in cardiac arrest as per his words Past History - Past Medical History Allergies/Adverse Reactions: Allergies Allergy/AdvReac Type Severity Reaction Status Date / Time No Known Allergies Allergy Verified 01/18/18 12:09 Home Medications: Ambulatory Orders Famotidine [Pepcid -] 20 mg PO BID #14 tablet 01/13/18 Pantoprazole Sodium [Protonix -] 40 mg PO DAILY #30 tablet.ec 01/13/18 cloNIDine HCL [Catapres -] 0.1 mg PO TID PRN #9 tablet 01/15/18 COPD: No - Immunization History Immunization Up to Date: Yes - Suicide/Smoking/Psychosocial Hx Smoking Status: No Smoking History: Current every day smoker Have you smoked in the past 12 months: No Number of Cigarettes Smoked Daily: 9 Information on smoking cessation initiated: No Hx Alcohol Use: No Drug/Substance Use Hx: Yes (percocets 3-4 per day [facility]) Substance Use Type: None Review of Systems - Review of Systems Musculoskeletal: Yes: See HPI *Physical Exam - Vital Signs Last Vital Signs Temp Pulse Resp BP Pulse Ox 98.3 F 82 18 140/95 98 01/18/18 12:11 01/18/18 12:11 01/18/18 12:11 01/18/18 12:11 01/18/18 12:11 - Physical Exam Comments: 01/18/18 12:38 HEAD: NC/AT EYES: Conjuntiva clear Ears: Canals and TM's normal NOSE: No d/c THROAT: Moist mucous membrances, oral pharanx clear, uvula midline NECK: Supple without adenopathy CARDIAC: S1 S2 LUNGS: CTA Full and Equal breath sounds ABDOMEN: Soft NT ND MS: Full ROM in all joints without edema NEUROLOGIC: No gross sensory or motor deficits, NVID SKIN: Normal color and temperature no lesions or rashes Left arm skin color and temperature are normal range of motion is full and nonpainful. There is no areas of tenderness. 5 out of 5 strength with supraspinous isolation internal and external rotation no tenderness about the medial lateral upper condyle of the elbow full range of motion of the elbow wrist and forearm without pain. No gross sensorimotor deficits compartments are soft and nontender he is neurovascularly intact. Moderate Sedation - Procedure Monitoring Vital Signs: Procedure Monitoring Vital Signs Temperature 98.3 F 01/18/18 12:11 Pulse Rate 82 01/18/18 12:11 Respiratory Rate 18 01/18/18 12:11 Blood Pressure 140/95 01/18/18 12:11 O2 Sat by Pulse Oximetry (%) 98 01/18/18 12:11 *DC/Admit/Observation/Transfer Diagnosis at time of Disposition: Arm pain - Discharge Dispostion Disposition: HOME Condition at time of disposition: Stable Decision to Admit order: No - Referrals Referrals: Ezekiel Bull MD [Staff Physician] - - Patient Instructions Additional Instructions: He may take Tylenol as directed for pain return to the emergency room should symptoms worsen or go unresolved and follow-up with orthopedic surgery in one to 2 days for further evaluation and treatment options should your pain return. - Post Discharge Activity
== END 2018-01-18 12:45 | disposition home or self-care (01) ==
LOC: JERFT 12:04
DX: M79.602 Pain in left arm (principal); F17.210 Nicotine dependence, cigarettes, uncomplicated; F32.9 Major depressive disorder, single episode, unspecified; K21.9 Gastro-esophageal reflux disease without esophagitis; F11.11 Opioid abuse, in remission
CPT/HCPCS: 99281-25

== ENCOUNTER 2018-01-19 17:44 | Emergency (ER) | payer BC ==
--- NOTE | 2018-01-19 17:54 | PDOC ---
Rapid Medical Evaluation Chief Complaint: Shortness of Breath Time Seen by Provider: 01/19/18 17:50 Medical Evaluation: Allergies Allergy/AdvReac Type Severity Reaction Status Date / Time No Known Allergies Allergy Verified 01/19/18 17:48 01/19/18 17:51 I have performed a brief in-person evaluation of this patient. The patient presents with a chief complaint of:opiod withdrawl,- percocets, none x 1 week. after eating today has Some SOB, no cough/ fevers/ Pertinent physical exam findings: jittery/ mild hyperventilating. . I have ordered the following: nothing The patient will proceed to the ED for further evaluation. Discharge Disposition - Diagnosis Withdrawal complaint - Referrals - Patient Instructions - Post Discharge Activity
[2018-01-19 17:55] VITALS: BP 154/91; PULSE 63; TEMP 99.2; BMI 32.3
--- NOTE | 2018-01-19 18:34 | PDOC ---
Attending Attestation - Resident Resident Name: Lyndon Tang - ED Attending Attestation I have performed the following: I have examined & evaluated the patient, The case was reviewed & discussed with the resident, I agree w/resident's findings & plan, Exceptions are as noted - HPI HPI: 01/19/18 18:33 22 yo male has a history of narcotic dependency and stopped taking percocet 1 week ago . He had been taking 3 tabs of percocet daily for the past 3 years 01/19/18 18:48 - Physicial Exam PE: 01/19/18 18:49 wnwd 22 yo male presents with some anxiety since he stopped narcotics use 1 week ago head ncat eyes winter eomi neck supple cvs [id number] lungs cta b/l abd nontender extremities no deformities,no edema skin warm and dry neuro axox3,ambulatory,motor strength 5/5 psych slightly anxious - Medical Decision Making 01/19/18 18:56 -he has had multiple ER visits within the past week. Labs and ekgs done when he came to our ER on 01/12,01/13,/01/15 and today -no fevers,no nausea or vomiting in past 2 days -he came in to make sure everything was alright since he stopped his percocet abuse 01/19/18 19:52 sterile pyuria,follow up with urology
--- NOTE | 2018-01-19 18:50 | PDOC ---
History of Present Illness - General Chief Complaint: Shortness of Breath Stated Complaint: Shortness of Breath Time Seen by Provider: 01/19/18 17:50 - History of Present Illness Initial Comments: The patient is a 22M w/ a history of percocet abuse. Last use last Thursday (7d ago). Patient reports anxiety today and wanted to get checked out that he's managing himself right at home. He denies pain, fevers/chills, chest pain, SOB, abdominal pain, N/V/C/D, or changes in sensation 01/19/18 18:41 Past History - Past Medical History Allergies/Adverse Reactions: Allergies Allergy/AdvReac Type Severity Reaction Status Date / Time No Known Allergies Allergy Verified 01/19/18 17:48 Home Medications: Ambulatory Orders Famotidine [Pepcid -] 20 mg PO BID #14 tablet 01/13/18 Pantoprazole Sodium [Protonix -] 40 mg PO DAILY #30 tablet.ec 01/13/18 cloNIDine HCL [Catapres -] 0.1 mg PO TID PRN #9 tablet 01/15/18 COPD: No - Immunization History Immunization Up to Date: Yes - Suicide/Smoking/Psychosocial Hx Smoking Status: No Smoking History: Former smoker Have you smoked in the past 12 months: Yes Number of Cigarettes Smoked Daily: 9 If you are a former smoker, when did you quit?: 2 weeks ago Information on smoking cessation initiated: No Hx Alcohol Use: No 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 No weakness HEAD, EYES, EARS, NOSE AND THROAT: No change in vision. No ear pain or discharge. No sore throat CARDIOVASCULAR: No chest pain or shortness of breath RESPIRATORY: Denies cough, hemoptysis GASTROINTESTINAL: No nausea, vomiting, diarrhea or constipation GENITOURINARY: No dysuria, frequency, or change in urination MUSCULOSKELETAL: No joint or muscle swelling or pain. No neck or back pain SKIN: No rash NEUROLOGIC: No headache, vertigo, loss of consciousness, or change in strength/ sensation ENDOCRINE: No increased thirst. No abnormal weight change HEMATOLOGIC/LYMPHATIC: No anemia, easy bleeding, or history of blood clots ALLERGIC/IMMUNOLOGIC: No hives or skin allergy 01/19/18 18:43 Is the patient limited Nigerien proficient: No *Physical Exam - Vital Signs Last Vital Signs Temp Pulse Resp BP Pulse Ox 99.2 F 63 18 154/91 100 01/19/18 17:49 12 17:49 01/19/18 17:49 01/19/18 17:49 01/19/18 17:49 - Physical Exam Comments: GENERAL: Awake, alert, and fully oriented, in no acute distress HEAD: No signs of trauma, normocephalic, atraumatic EYES: PERRLA, EOMI, sclera anicteric, conjunctiva clear ENT: Hearing grossly normal, nares patent, oropharynx clear without exudates LUNGS: No distress, speaks full sentences, clear to auscultation bilaterally HEART: Regular rate and rhythm, normal S1 and S2, no murmurs appreciated, peripheral pulses normal and equal bilaterally ABDOMEN: Soft, nontender, normoactive bowel sounds. No guarding, no rebound EXTREMITIES : Normal inspection, Normal range of motion, no edema. No clubbing or cyanosis NEUROLOGICAL: Cranial nerves II through XII grossly intact. Normal speech, normal gait, no focal sensorimotor deficits SKIN: Warm, Dry, normal turgor, no rashes or lesions noted 01/19/18 18:43 Moderate Sedation - Procedure Monitoring Vital Signs: Procedure Monitoring Vital Signs Temperature 99.2 F 01/19/18 17:49 Pulse Rate 63 01/19/18 17:49 Respiratory Rate 18 01/19/18 17:49 Blood Pressure 154/91 01/19/18 17:49 O2 Sat by Pulse Oximetry (%) 100 01/19/18 17:49 Medical Decision Making - Medical Decision Making The patient is a 22M w/ a history of percocet abuse who quite reportedly approximately 1 weeks ago Previous UA w/ leukocytosis (WBC 120) Will repeat UA 01/19/18 18:50 UA w/o evidence of UTI Plan for D/C w/ PCP f/u Patient w/ clonidine from prevous Rx -Counseled to take PRN if needed and to follow up with primary Discharge instructions and return precautions given Patient in agreement and verbalized agreement Dispo: Home 01/19/18 19:52 *DC/Admit/Observation/Transfer Diagnosis at time of Disposition: Withdrawal complaint, Opioid withdrawal - Discharge Dispostion Disposition: HOME Condition at time of disposition: Stable Decision to Admit order: No - Referrals Referrals: [facility] [place] [facility] [place] [Provider Group] - Patient Instructions Printed Discharge Instructions: DI for Opioid Addiction - Post Discharge Activity Forms/Work/School Notes: Back to Work
[2018-01-19 19:42] LABS: URINE APPEARANCE CLEAR; URINE BILIRUBIN NEGATIVE (<2.0 mg/dL); URINE COLOR LTYELLOW; URINE GLUCOSE (UA) NEGATIVE (NEGATIVE); URINE KETONE 1+ (NEGATIVE); URINE LEUK ESTERASE NEGATIVE (NEGATIVE); URINE NITRITE NEGATIVE (NEGATIVE); URINE PROTEIN NEGATIVE (NEGATIVE); URINE UROBILINOGEN NEGATIVE mg/dL (0.2-1.0)
== END 2018-01-19 20:19 | disposition home or self-care (01) ==
LOC: JER 17:44
DX: F11.23 Opioid dependence with withdrawal (principal); F41.9 Anxiety disorder, unspecified
CPT/HCPCS: 81003; 99282-25

== ENCOUNTER 2018-01-28 11:01 | Emergency (ER) | payer BC ==
[2018-01-28 11:05] VITALS: PULSE 88; TEMP 98.2; BMI 33.3
--- NOTE | 2018-01-28 11:58 | PDOC ---
History of Present Illness - General Chief Complaint: Chest Pain Stated Complaint: REVISIT, SOB Time Seen by Provider: 01/28/18 11:38 - History of Present Illness Initial Comments: The patient is a 22M w/ a history of opioid abuse who presents for evaluation of sharp, non-radiating, R-sided chest pain since 299 that has been constant since that time. Denies exertional pain. Denies anything that alleviates or exacerbates his pain. Has not tried taking anything for it. Reports that pain is the same pain as the last two presentations to the ED that also brought him today. Reports abstaining from Percocet/opioids for last 16 days Quit tobacco 1m ago Drinks EtOH socially but not daily, denies withdrawal symptoms. 01/28/18 11:59 Past History - Past Medical History Allergies/Adverse Reactions: Allergies Allergy/AdvReac Type Severity Reaction Status Date / Time No Known Allergies Allergy Verified 01/28/18 13:10 Home Medications: Ambulatory Orders Famotidine [Pepcid -] 20 mg PO BID #14 tablet 01/13/18 COPD: No - Immunization History Immunization Up to Date: Yes - Suicide/Smoking/Psychosocial Hx Smoking Status: No Smoking History: Former smoker Have you smoked in the past 12 months: No Number of Cigarettes Smoked Daily: 9 If you are a former smoker, when did you quit?: 2 weeks ago Information on smoking cessation initiated: No Hx Alcohol Use: No Drug/Substance Use Hx: No Substance Use Type: None Review of Systems - Review of Systems Able to Perform ROS?: Yes Comments:: GENERAL/CONSTITUTIONAL: No fever or chills. No weakness HEAD, EYES, EARS, NOSE AND THROAT: No change in vision. No ear pain or discharge. No sore throat CARDIOVASCULAR: No shortness of breath RESPIRATORY: Denies cough, hemoptysis GASTROINTESTINAL: No nausea, vomiting, diarrhea or constipation GENITOURINARY: No dysuria, frequency, or change in urination MUSCULOSKELETAL: No joint or muscle swelling or pain. No neck or back pain SKIN: No rash NEUROLOGIC: No headache, vertigo, loss of consciousness, or change in strength/ sensation ENDOCRINE: No increased thirst. No abnormal weight change HEMATOLOGIC/LYMPHATIC: No anemia, easy bleeding, or history of blood clots ALLERGIC/IMMUNOLOGIC: No hives or skin allergy 01/28/18 11:57 Is the patient limited [place] proficient: No *Physical Exam - Vital Signs Last Vital Signs Temp Pulse Resp BP Pulse Ox 98.2 F 88 16 186/79 H 99 01/28/18 11:03 01/28/18 11:03 01/28/18 11:03 01/28/18 11:03 01/28/18 11:03 - Physical Exam Comments: GENERAL: Awake, alert, and fully oriented, in no acute distress but appears anxious HEAD: No signs of trauma, normocephalic, atraumatic EYES: PERRLA, EOMI, sclera anicteric, conjunctiva clear ENT: Hearing grossly normal, nares patent, oropharynx clear without exudates. Moist mucosa LUNGS: No distress, speaks full sentences, clear to auscultation bilaterally HEART: Regular rate and rhythm, normal S1 and S2, no murmurs appreciated, peripheral pulses normal and equal bilaterally ABDOMEN: Soft, nontender, normoactive bowel sounds. No guarding, no rebound EXTREMITIES : Normal inspection, Normal range of motion, no edema. No clubbing or cyanosis NEUROLOGICAL: Cranial nerves II through XII grossly intact. Normal speech, normal gait, no focal sensorimotor deficits SKIN: Warm, Dry, normal turgor, no rashes or lesions noted 01/28/18 11:57 Moderate Sedation - Procedure Monitoring Vital Signs: Procedure Monitoring Vital Signs Temperature 98.2 F 01/28/18 11:03 Pulse Rate 88 01/28/18 11:03 Respiratory Rate 16 01/28/18 11:03 Blood Pressure 186/79 H 01/28/18 11:03 O2 Sat by Pulse Oximetry (%) 99 01/28/18 11:03 ED Treatment Course - LABORATORY CBC & Chemistry Diagram: 01/28/18 12:47 01/28/18 12:47 Medical Decision Making - Medical Decision Making The patient is a 22M w/ a history of Percocet abuse ED Course ECG Tylenol 975mg PO once EKG normal sinus rhythm, no interval abnormalities, narrow QRS, ST and T wave segments and morphology normal. Nonspecific T wave abnormalities in inferior leads, some change from prior. -Will obtain BMP, CBC, Trop I 01/28/18 11:57 Vital Signs Temp Pulse Resp BP Pulse Ox 98.2 F 88 16 135/94 99 01/28/18 11:03 01/28/18 11:03 01/28/18 11:03 01/28/18 12:37 12/13/18 11:03 Will obtain CXR to r/o PNA 01/28/18 12:40 Trop I neg CXR w/o evidence of PNA Patient's symptoms improved Discharge instructions and return precautions given Plan for D/C w/ PCP anc cards f/u Patient in agreement and verbalized understanding Dispo: home 01/28/18 18:37 *DC/Admit/Observation/Transfer Diagnosis at time of Disposition: Chest pain Qualifiers: Chest pain type: unspecified Qualified Code(s): R07.9 - Chest pain, unspecified - Discharge Dispostion Disposition: HOME Condition at time of disposition: Stable Decision to Admit order: No - Referrals Referrals: [facility] [place] [facility] [place] [Provider Group] Phillip Hui MD [Staff Physician] - Sourav Campos MD [Staff Physician] - - Patient Instructions Printed Discharge Instructions: DI for Atypical Chest Pain Additional Instructions: You were seen in the Emergency Department for chest pain and anxiety. Please review the handout provided at discharge. Please follow up with the a primary care provider and Cardiology. Return to the Emergency Department if you develop fevers/chills, worsening pain , worsening symptoms, or any new/concerning symptoms. - Post Discharge Activity
--- NOTE | 2018-01-28 12:16 | PDOC ---
Attending Attestation - Resident Resident Name: JosselinealeksandarLyndon rolle - ED Attending Attestation I have performed the following: I have examined & evaluated the patient, The case was reviewed & discussed with the resident, I agree w/resident's findings & plan - [facility] HPI: 01/28/18 14:52 The patient is a 22 year old male with a past medical history of percocet abuse (reportedly quit 16 days ago) here today for evaluation of chest pain. The patient reports that his chest pain is not positional, not reproducible, is diffuse, and started intermittently when he quit using percocet. The patient notes that his chest pain had been intermittent for the first 5 days since quitting and then went away for one week until today, but present x 1 week. He confirms palpitations. denies cough or congestion, no caffeine intake. he admits to playing softball and being active/lifting. Patient denies headache, lightheadedness. Denies fever, chills. Denies shortness of breath. Denies nausea, vomiting, diarrhea, abdominal pain. Denies lower extremity edema. Denies flu symptoms. Allergies: NKA Social history: Patient confirms occasional alcohol use and marijuana use (last use on 01/04). Patient reports quitting tobacco use two weeks ago. PCP: none reported 01/28/18 14:56 - Physicial Exam PE: 01/28/18 14:53 NAD, well appearing, PERRL, EOMI, MMM, nl conjunctiva, anicteric; neck supple. lungs clear, RRR, abdomen soft nontender. HARTMAN x4, no focal neuro deficits. No peripheral edema. normal color for ethnicity, WWP. - Medical Decision Making 01/28/18 14:53 See HPI for details Vital signs reviewed, wnl. Prior notes reviewed, including admissions, discharges and consultations. laboratory results and imaging reviewed, basic labs and lytes wnl CXR_no acute pathology Cardiac panel_neg trop EKG normal sinus rhythm, no interval abnormalities, narrow QRS, ST and T wave segments and morphology normal. Nonspecific T wave abnormalities in inferior leads, some change from prior. ED course: BP improved, comfortable, NAD. no chest pain, has h/o anxiety. off percocets/opioids. doubt cardiac/ACS given age, no other risk factors, and diffuse CP without focality. does admit to exercising and lifting and playing softball, so possible msk etiology. Dispo: Pt to be discharged in stable condition. Patient and family made aware of impression and plan, return precautions discussed (including but not limited to worsening pain or symptoms), fevers, or signs of infection, chest pain, respiratory distress, inability to tolerate oral intake, dehydration, syncope, or neurologic changes). Follow up with PMD and/or specialist as recommended, follow up information provided, take medications as instructed for duration of time. continue with supportive care, avoid triggers and precipitants. All questions answered to patient's satisfaction and expressed understanding and comfort with this. Cardiology referrals given.
[2018-01-28] MEDS ORDERED: ALPRAZolam 0.25 MG TABLET PO ONE (12:32)
[2018-01-28 12:40] VITALS: BP 135/94
[2018-01-28] MEDS ORDERED: ALPRAZolam 0.25 MG TABLET ONE (13:01)
[2018-01-28 13:12] LABS: HEMATOCRIT 44.5 % (35.4-49); HEMOGLOBIN 15.9 GM/dL (11.7-16.9); MCH 30.7 pg (25.7-33.7); MCHC 35.8 g/dl (32.0-35.9); MEAN CELL VOLUME 85.8 fl (80-96); MEAN PLT VOLUME 10.8 fl (7.5-11.1); PLATELET COUNT 174 K/MM3 (134-434); RBC 5.18 M/mm3 (4.00-5.60); RDW 12.1 % (11.9-15.9); WHITE BLOOD COUNT 6.6 K/mm3 (4.0-10.0)
[2018-01-28 13:42] LABS: ANION GAP 7 MMOL/L (8-16); BLOOD UREA NITROGEN 19 mg/dL (7-18); CALCIUM 9.1 mg/dL (8.5-10.1); CHLORIDE 108 mmol/L (98-107); CO2 27 mmol/L (21-32); CREATININE 1.1 mg/dL (0.55-1.3); GLUCOSE,RANDOM 120 mg/dL (74-106); POTASSIUM 4.1 mmol/L (3.5-5.1); SODIUM 142 mmol/L (136-145)
--- NOTE | 2018-01-29 10:19 | EKG ---
Test Reason : Blood Pressure : / mmHG Vent. Rate : 085 BPM Atrial Rate : 085 BPM P-R Int : 124 ms QRS Dur : 094 ms QT Int : 354 ms P-R-T Axes : 067 082 011 degrees QTc Int : 421 ms NORMAL SINUS RHYTHM WITH SINUS ARRHYTHMIA POSSIBLE LEFT ATRIAL ENLARGEMENT INCOMPLETE RIGHT BUNDLE BRANCH BLOCK BORDERLINE ECG WHEN COMPARED WITH ECG OF 15-JAN-2018 12:07, T WAVE INVERSION NOW EVIDENT IN INFERIOR LEADS NONSPECIFIC T WAVE ABNORMALITY NOW EVIDENT IN LATERAL LEADS Confirmed by ANOOP MATTSON, KIA ([id number]) on 01/29/2018 10:19:21 AM Referred By: Confirmed By:KIA DAVALOS MD
== END 2018-01-28 16:08 | disposition home or self-care (01) ==
LOC: JER 11:01
DX: R07.9 Chest pain, unspecified (principal); F11.10 Opioid abuse, uncomplicated; Z87.891 Personal history of nicotine dependence
CPT/HCPCS: 36415; 71046-TC-FY; 80048; 84484; 85027; 93005; 93010; 99284-25

== ENCOUNTER 2022-04-03 02:52 | Emergency (ER) | payer SELFPAY ==
[2022-04-03 03:10] VITALS: BP 118/72; PULSE 62; RESP 18; TEMP 97.8; BMI 31.6
== END 2022-04-03 05:20 | disposition left against medical advice (07) ==
LOC: JER 02:52
DX: L02.213 Cutaneous abscess of chest wall (principal)
CPT/HCPCS: 99281-25